=== PATIENT | male | born 1955 | race Caucasian/White ===

== ENCOUNTER 2021-02-02 07:22 | Day surgery (SDC) | payer MEDICARE ==
[2021-02-01 10:18] LABS: BASOPHILS # (AUTO) 0.1 X10'3 (0-0.2); BASOPHILS % (AUTO) 1.3 % (0-1); EOSINOPHILS # (AUTO) 0.3 X10'3 (0-0.9); EOSINOPHILS % (AUTO) 6.7 % (0-6); HEMATOCRIT 43.6 % (42.0-52.0); HEMOGLOBIN 14.6 g/dl (14.0-17.9); LYMPHOCYTES % (AUTO) 20.4 % (21-51); MEAN CORPUSCULAR HEMOGLOBIN 30.4 PG (27.0-31.0); MEAN CORPUSCULAR HGB CONC 33.5 g/dL (33.0-36.5); MEAN CORPUSCULAR VOLUME 90.8 FL (78-98); MONOCYTES # (AUTO) 0.6 X10'3 (0-0.9); NEUTROPHILS % (AUTO) 59.6 % (42-75); PLATELET COUNT 178 X10'3 (140-440); RED BLOOD COUNT 4.81 X10'6 (4.70-6.10); RED CELL DISTRIBUTION WIDTH 13.4 % (11.5-14.5)
[2021-02-01 10:20] LABS: ALBUMIN 3.8 G/DL (3.4-5.0); ANION GAP 9 (8-16); BLOOD UREA NITROGEN 28 MG/DL (7-18); CALCIUM 9.1 MG/DL (8.5-10.1); CHLORIDE 101 MMOL/L (99-107); CREATININE 1.27 MG/DL (0.60-1.10); GLUCOSE 103 MG/DL (70-104); POTASSIUM 4.1 MMOL/L (3.5-5.1); SODIUM 137 MMOL/L (135-145); TOTAL CARBON DIOXIDE 27.2 MMOL/L (24-32); eGFR 57 ML/MIN
[2021-02-01 10:42] LABS: PARTIAL THROMBOPLASTIN TIME 28 SECONDS (22-32)
[~2021-02-02] VITALS: Ht 175.3 cm; Wt 88.5 kg
[2021-02-02] VITALS (15 sets, daily range): BP systolic 89–116; BP diastolic 45–73
[~2021-02-02 07:22] MED LIST: ACET-2006 PO; ASPI-1265 PO; ATOR20TA66 PO; LEVO100T PO; LISI-642 PO; METO-384 PO; PANT-47 PO; SILD25TA PO; TICA90TA PO; WALKERFR
[2021-02-02] MEDS ORDERED: heparin 1,000unit/ml 10ml vial 10 ML ONE ×2 (07:48→08:44)
[2021-02-02] MEDS ORDERED: midazolam 1 mg/ML 2ml injection ONE (07:48)
[2021-02-02] MEDS ORDERED: nitroGLYCERIN-Tridil 50MG/D5W 250 ML IV ONE (07:48)
[2021-02-02] MEDS ORDERED: fentaNYL/PF 50MCG/1 ML 2ML syringe ONE (07:48)
[2021-02-02] MEDS ORDERED: LIDOcaine 1% (10mg/ml)w/preservative injection 20ml MDV ONE (07:48)
[2021-02-02] MEDS ORDERED: verapamil 2.5 mg/ml inj IV ONE (07:48)
[2021-02-02] MEDS ORDERED: iohexol 350MG/ML 100ml bottle IV ONE ×2 (07:49→08:49)
[2021-02-02] MEDS ORDERED: iohexol 350 MG/ML 50ML vial IV ONE (07:49)
[2021-02-02] MEDS ORDERED: FLO0.4C PO (07:57)
[2021-02-02] MEDS ORDERED: FLUT16SP2 BOTHNARES (07:57)
[2021-02-02] MEDS ORDERED: CLOP75TA15 PO (07:57)
[2021-02-02] MEDS ORDERED: LIDOcaine/PRILOcaine 5gm cream TP ONE (08:00)
[2021-02-02] MEDS ORDERED: sodium bicarbonate (8.4%) inj. 150 ML in dextrose 5%-water 1,000 ML IV ONE (08:00)
[2021-02-02] MEDS ORDERED: diphenhydrAMINE 25mg capsule PO PRN (08:00)
[2021-02-02] MEDS ORDERED: LORazepam 0.5 MG tablet PO PRN (08:00)
[2021-02-02] MEDS ORDERED: TOBR5DRO7 EACHEYE (08:02)
[2021-02-02] MEDS ORDERED: align PO (08:02)
[2021-02-02] MEDS ORDERED: ISOS30TA84 PO (08:02)
[2021-02-02] MEDS ORDERED: heparin 25,000 UNIT/250ml bag 250 ML IV ONE (08:44)
[2021-02-02] MEDS ORDERED: clopidogrel 300mg tablet ONE (09:39)
[2021-02-02] MEDS ORDERED: heparin 10,000 units/1 ML INJ IV PRN (10:45)
[2021-02-02] MEDS ORDERED: heparin 25,000 UNIT/250ml bag 250 ML IV SCH (10:45)
[2021-02-02] MEDS ORDERED: heparin 10,000 units/1 ML INJ IV ONE (10:45)
[2021-02-03] MEDS ORDERED: clopidogrel 75mg tablet PO SCH (08:00)
== END 2021-02-02 17:05 | disposition home or self-care (01) ==
LOC: SSTAY O 07:22
PROVIDERS: ATTEND Internal Medicine Cardiovascular Disease
DX: R06.02 Shortness of breath (principal); R07.9 Chest pain, unspecified; R53.83 Other fatigue; I25.119 Atherosclerotic heart disease of native coronary artery with unspecified angina pectoris; E78.5 Hyperlipidemia, unspecified; I25.2 Old myocardial infarction; I12.9 Hypertensive chronic kidney disease with stage 1 through stage 4 chronic kidney disease, or unspecified chronic kidney disease; N18.9 Chronic kidney disease, unspecified; Z95.5 Presence of coronary angioplasty implant and graft; Z79.899 Other long term (current) drug therapy
CPT/HCPCS: 36415; 76937; 80048; 85025; 85347; 85610; 85730; 93005; 93458; 93571; 99152; 99153; C1725; C1751; C1760; C1769; C1874; C1894; C9600; J1644; J2001; J2250; J3010; Q0163; Q9967; A4620; A6258; J3490

== ENCOUNTER 2022-06-23 06:57 | Emergency (ER) | payer MEDICARE ==
[~2022-06-23] VITALS: Ht 175.3 cm; Wt 81.8 kg
[~2022-06-23 06:57] MED LIST changes: -ACET-2006 PO; -ASPI-1265 PO; +ASPI-920 PO; +ATOR-2 PO; -ATOR20TA66 PO; +BIFI4CAP PO; +CLOP75TA15 PO; +FLO0.4C PO; +FLUT16SP2 BOTHNARES; +ISOS60TA71 PO; +MOME45CR3 TOP; -SILD25TA PO; -TICA90TA PO; -WALKERFR
[2022-06-23 10:12] VITALS: BP 107/64
== END 2022-06-23 10:16 | disposition home or self-care (01) ==
LOC: ER 06:58
DX: M79.602 Pain in left arm (principal); R20.0 Anesthesia of skin; I10 Essential (primary) hypertension; Z79.82 Long term (current) use of aspirin; Z79.899 Other long term (current) drug therapy; Z85.9 Personal history of malignant neoplasm, unspecified; Z90.49 Acquired absence of other specified parts of digestive tract
CPT/HCPCS: 93971; 99284

== ENCOUNTER 2022-06-27 09:20 | Emergency (ER) | payer MEDICARE ==
[~2022-06-27] VITALS: Ht 175.3 cm; Wt 81.8 kg
[2022-06-27] MEDS ORDERED: HYDROcodone/acetaminophen 10/325mg tab PO ONE (11:00)
[2022-06-27 11:46] VITALS: BP 114/71
== END 2022-06-27 19:48 | disposition home or self-care (01) ==
LOC: ER 09:20
DX: J95.89 Other postprocedural complications and disorders of respiratory system, not elsewhere classified (principal); J95.811 Postprocedural pneumothorax; I10 Essential (primary) hypertension; Z98.3 Post therapeutic collapse of lung status; Z85.9 Personal history of malignant neoplasm, unspecified; Z79.82 Long term (current) use of aspirin; Z79.899 Other long term (current) drug therapy; Z85.118 Personal history of other malignant neoplasm of bronchus and lung; Y83.8 Other surgical procedures as the cause of abnormal reaction of the patient, or of later complication, without mention of misadventure at the time of the procedure; Y92.89 Other specified places as the place of occurrence of the external cause; Y82.8 Other medical devices associated with adverse incidents
CPT/HCPCS: 71045; 71046; 99284; A6222; A6449